=== PATIENT | male | born 1960 | race Caucasian/White ===

== ENCOUNTER 2016-03-27 17:11 | Emergency (ER) | payer OTHER, BC ==
[~2016-03-27] VITALS: Ht 188 cm; Wt 104.4 kg
[~2016-03-27 17:11] MED LIST: AZOR 5/20 MG1 TABLET PO; LORTAB 5-325 M1 EACH PO; MOTRIN600 MG PO; PRAVASTATIN SOD20 MG PO; RANITIDINE HCL150 M1 PO
[2016-03-27 18:51] LABS: ADD MIUA? NO; BILIRUBIN NEGATIVE; BLOOD NEGATIVE; COLOR YELLOW ((YELLOW)); GLUCOSE (STRIP) NEGATIVE; KETONES NEGATIVE; LEUKOCYTES NEGATIVE; NITRITE NEGATIVE; PROTEIN (STRIP) NEGATIVE; SPECIFIC GRAVITY 1.012 (1.000-1.030); UROBILINOGEN 0.2 MG/DL (0.2-1.0)
[2016-03-27 20:29] VITALS: BP 156/82
== END 2016-03-27 20:31 | disposition home or self-care (01) ==
LOC: EME 17:11
PROVIDERS: Emergency Medicine
DX: R10.32 Left lower quadrant pain (principal); E78.5 Hyperlipidemia, unspecified; I10 Essential (primary) hypertension
CPT/HCPCS: 74176; 81003; 99281; 99283